=== PATIENT | female | born 1955 | race Hispanic/Latino ===

== ENCOUNTER 2020-08-03 13:21 | Emergency (ER) | payer MEDICARE ==
--- NOTE | 2020-08-03 19:19 | RAD REPORT ---
EXAM DESCRIPTION: RAD - Chest Single View - 08/03/2020 7:04 pm CLINICAL HISTORY: SOB, COVID positive COMPARISON: Single-view chest April 2009 TECHNIQUE: AP portable chest image was obtained 08/03/2020 7:04 pm . FINDINGS: Lung volumes are low. Airspace opacification is present in the mid and lower right lung fi eld with significant lower left lung field opacification. There is respiratory motion degradation. Th is is most likely mild to moderate severity COVID-19 pneumonia. Heart and vasculature are normal. No measurable pleural effusion and no pneumothorax. No acute bony abnormality seen. No acute aortic findings suspected. IMPRESSION: Mild to moderate bilateral COVID-19 pneumonia pattern
[2020-08-03 19:50] LABS: Protime INR 1.01
[2020-08-03 20:05] LABS: Absolute Lymphocytes (CBC) 1.4 K/uL (0.7-4.9); Basophils % 0.2 % (0-1.3); Hematocrit 40.4 % (36.0-45.0); Lymphocytes % 16.9 % (15.3-44.8); MPV 8.7 fL (7.6-11.3); RBC Red Blood Cell Count 4.53 M/uL (3.86-4.86)
[2020-08-03 20:12] LABS: ALT/SGPT 58 U/L (12-78); AST/SGOT 44 U/L (15-37); Albumin 3.5 g/dL (3.4-5.0); Alkaline Phosphatase 150 U/L (45-117); BUN Blood Urea Nitrogen 17 mg/dL (7-18); Bicarbonate 26 mmol/L (21-32); Bilirubin Direct 0.2 mg/dL (0-0.2); Bilirubin Total 0.6 mg/dL (0.2-1.0); Ferritin 809.3 ng/mL (8-388); Glucose Level 92 mg/dL (74-106); Lipase 143 U/L (73-393); Potassium 3.8 mmol/L (3.5-5.1); Protein, Total 7.9 g/dL (6.4-8.2); Sodium Level 139 mmol/L (136-145); Troponin (Emerg Dept Use Only) < 0.02 ng/mL (0.0-0.045)
[2020-08-03] MEDS ORDERED: ALBUTEROL 2.5 MG/3 ML NEB SOL ONE (20:22)
[2020-08-03] MEDS ORDERED: IPRATROPIUM BROM 0.5MG/2.5ML ONE (20:22)
[2020-08-03] MEDS ORDERED: METHYLPREDNISOLONE 125 MG INJ ONE (20:22)
--- NOTE | 2020-08-03 21:12 | EDPHYS ---
Physician Documentation [facility] Name: Leti Doan Age: 65 yrs Sex: Female : 1955 Arrival Date: 08/03/2020 Time: 13:25 Bed 20 Private MD: ED Physician Andi Snell HPI: 08/03 18:47 This 65 yrs old Female presents to ER via Ambulatory with complaints of pm1 COVID+, Shortness of breath. 18:47 The patient has shortness of breath at rest. Onset: The symptoms/episode began/occurred pm1 1 week(s) ago. The patient's shortness of breath is aggravated by nothing, is alleviated by nothing. Associated signs and symptoms: Pertinent positives: non-productive cough, sore throat, nausea, fatigue, headache , Pertinent negatives: chest pain, fever, vomiting, diarrhea. Severity of symptoms: in the emergency department the symptoms are worse. Diagnosed with COVID 1 week ago with her PCP in [place]. Historical: - Allergies: 13:43 No Known Allergies; sv - Immunization history:: Adult Immunizations up to date. - Social history:: Smoking status: Patient denies any tobacco usage or history of. ROS: 18:47 Cardiovascular: Negative for chest pain, palpitations, and edema. pm1 18:47 MS/Extremity: Negative for injury and deformity, Skin: Negative for injury, rash, and discoloration. 18:47 Constitutional: Positive for body aches, fatigue, Negative for fever, poor PO intake. 18:47 ENT: Positive for sore throat, Negative for rhinorrhea. 18:47 Neck: Positive for pain, Negative for injury or acute deformity, stiffness. 18:47 Respiratory: Positive for cough, shortness of breath. 18:47 Abdomen/GI: Positive for nausea, Negative for abdominal pain, vomiting, diarrhea. 18:47 Back: Positive for of the left mid back and right mid back, pain. 18:47 Neuro: Positive for headache. Exam: 18:47 Head/Face: Normocephalic, atraumatic. pm1 18:47 Constitutional: This is a well developed, well nourished patient who is awake, alert, and in no acute distress. Chest/axilla: Normal chest wall appearance and motion. Nontender with no deformity. No lesions are appreciated. 18:47 Skin: Warm, dry with normal turgor. Normal color with no rashes, no lesions, and no evidence of cellulitis. MS/ Extremity: Pulses equal, no cyanosis. Neurovascular intact. Full, normal range of motion. 18:47 Cardiovascular: Exam negative for acute changes, Rate: normal, Rhythm: regular, Pulses: no pulse deficits are appreciated, Heart sounds: normal. 18:47 Respiratory: the patient does not display signs of respiratory distress, Respirations: tachypnea, 30 Breath sounds: bronchial sounds, that are mild, are heard diffusely. 18:47 Abdomen/GI: Inspection: obese Palpation: abdomen is soft and non-tender, in all quadrants. 18:47 Neuro: Exam negative for acute changes, Orientation: is normal, Mentation: is normal, Motor: is normal, moves all fours. Vital Signs: 13:43 BP 107 / 61; Pulse 96; Resp 32; Temp 97.6(O); Pulse Ox 98% on R/A; Weight 76.2 kg; sv Height 5 ft. 0 in. (152.40 cm); Pain 4/10; 19:47 BP 106 / 66 LA (man/lg); Pulse 79; Resp 28 S; Pulse Ox 95% on R/A; jp3 20:00 BP 114 / 64; Pulse 77; Resp 18; Pulse Ox 95% ; sf 21:00 BP 106 / 67; Pulse 92; Resp 18; Pulse Ox 94% ; sf 21:30 BP 106 / 67; Pulse 97; Resp 18; Pulse Ox 97% ; sf 13:43 Body Mass Index 32.81 (76.20 kg, 152.40 cm) sv MDM: 18:36 Patient medically screened. pm1 18:52 Data reviewed: vital signs. pm1 21:07 Data interpreted: Pulse oximetry: on room air is 95 %. Interpretation: normal. pm1 21:07 Counseling: I had a detailed discussion with the patient and/or guardian regarding: the pm1 historical points, exam findings, and any diagnostic results supporting the discharge/admit diagnosis, lab results, radiology results, the need for outpatient follow up, to return to the emergency department if symptoms worsen or persist or if there are any questions or concerns that arise at home, Discussed patient presentation and w/u with Dr. Macias. Patient can be discharged home with return precautions because she does not meet admit criteria. Discussed with patient and her daughter and she wants to go home. Discussed return precautions . 08/03 18:38 Order name: Blood Culture Adult (2) pm1 08/03 18:38 Order name: BMP pm1 08/03 18:38 Order name: C-Reactive Protein pm1 08/03 18:38 Order name: CBC with Diff pm1 08/03 18:38 Order name: D-Dimer pm1 08/03 18:38 Order name: Ferritin pm1 08/03 18:38 Order name: Flu pm1 08/03 18:38 Order name: Lactate pm1 08/03 18:38 Order name: LFT's pm1 08/03 18:38 Order name: Lipase pm1 08/03 18:38 Order name: Procalcitonin pm1 08/03 18:38 Order name: PT-INR; Complete Time: 20:01 pm1 08/03 18:38 Order name: Ptt, Activated; Complete Time: 20:01 pm1 08/03 18:38 Order name: Strep; Complete Time: 19:59 pm1 08/03 18:38 Order name: Troponin (emerg Dept Use Only); Complete Time: 20:36 pm1 08/03 18:38 Order name: CXR XRAY; Complete Time: 19:23 pm1 08/03 18:39 Order name: Blood Culture EDMS 08/03 18:39 Order name: Basic Metabolic Panel; Complete Time: 20:36 EDMS 08/03 18:39 Order name: C-Reactive Protein; Complete Time: 20:36 EDMS 08/03 18:39 Order name: CBC with Automated Diff; Complete Time: 20:08 EDMS 08/03 18:39 Order name: D-Dimer; Complete Time: 20:01 EDMS 08/03 18:39 Order name: Ferritin; Complete Time: 20:36 EDMS 08/03 18:39 Order name: Influenza Screen (A ; Complete Time: 20:01 EDMS 08/03 18:39 Order name: Lactate; Complete Time: 20:01 EDMS 08/03 18:39 Order name: Liver (Hepatic) Function; Complete Time: 20:36 EDMS 08/03 18:39 Order name: Lipase; Complete Time: 20:36 EDMS 08/03 18:39 Order name: Procalcitonin; Complete Time: 20:44 EDMS 08/03 19:59 Order name: Throat Culture EDID 08/03 18:38 Order name: EKG; Complete Time: 18:40 pm1 08/03 18:38 Order name: Cardiac monitoring; Complete Time: 19:33 pm1 08/03 18:38 Order name: Droplet/Contact Precautions; Complete Time: 19:33 pm1 08/03 18:38 Order name: EKG - Nurse/Tech; Complete Time: 19:50 pm1 08/03 18:38 Order name: IV Start; Complete Time: 19:33 pm1 08/03 18:38 Order name: Labs collected and sent; Complete Time: 19:33 pm1 08/03 18:38 Order name: O2 Per Protocol; Complete Time: 19:33 pm1 08/03 18:38 Order name: O2 Sat Monitoring; Complete Time: 19:33 pm1 Administered Medications: 20:05 Drug: SOLU-Medrol 125 mg Route: IVP; Site: right antecubital; sf 20:59 Follow up: Response: No adverse reaction sf 20:11 Drug: Albuterol - atroVENT (3:1) (2.5 mg - 0.5 mg) 3 ml Route: Nebulizer; sf 20:59 Follow up: Response: No adverse reaction sf Disposition: 08/03/20 21:11 Discharged to Home. Impression: Pneumonia due to SARS-associated coronavirus. - Condition is Stable. - Discharge Instructions: COVID-19. - Prescriptions for ivermectin 3 mg Oral tablet - take 6 tablet by ORAL route as directed 6 tablets on day 1 and 6 tablets on day 3; 12 tablet. Prednisone 20 mg Oral Tablet - take 3 tablet by ORAL route once daily for 5 days; 15 tablet. Albuterol Sulfate 90 mcg/actuation - inhale 1-2 puff by INHALATION route every 4-6 hours; 1 Inhaler. Guaifenesin AC 10- 100 mg/5 mL Oral Liquid - take 10 milliliter by ORAL route every 4 hours As needed; 240 milliliter. - Medication Reconciliation Form, Thank You Letter, Antibiotic Education, Prescription Opioid Use form. - Follow up: Emergency Department; When: As needed; Reason: Worsening of condition. Follow up: Private Physician; When: 2 - 3 days; Reason: Recheck today's complaints, Continuance of care, Re-evaluation by your physician. - Problem is new. - Symptoms have improved. Addendum: 08/11/2020 18:55 Co-signature as Attending Physician, Andi Snell MD. r n Signatures: Dispatcher [employer] Zari Valdes, RN RN Andi Landers MD MD rn Marinas, Patrick, FLATWORK WASHER FLATWORK WASHER pm1 Zain Hobbs RN RN sf Corrections: (The following items were deleted from the chart) 08/03 21:43 21:11 08/03/2020 21:11 Discharged to Home. Impression: Pneumonia due to SARS-associated sf coronavirus. Condition is Stable. Forms are Medication Reconciliation Form, Thank You Letter, Antibiotic Education, Prescription Opioid Use. Follow up: Emergency Department; When: As needed; Reason: Worsening of condition. Follow up: Private Physician; When: 2 - 3 days; Reason: Recheck today's complaints, Continuance of care, Re-evaluation by your physician. Problem is new. Symptoms have improved. pm1
--- NOTE | 2020-08-03 21:12 | ER ---
Nurse's Notes [facility] Name: Leti Doan Age: 65 yrs Sex: Female : 1955 Arrival Date: 08/03/2020 Time: 13:25 Bed 20 Private MD: Diagnosis: Pneumonia due to SARS-associated coronavirus Presentation: 08/03 13:41 Chief complaint: Patient states: BP is up and down, sore throat, nausea, neck pain, sv fatigue, headache, nausea started last Monday. COVID+ 2. Coronavirus screen: Client denies travel out of the [place] in the last 14 days. Client presents with at least one sign or symptom that may indicate coronavirus-19. Standard/surgical mask placed on the client. Provider contacted for isolation considerations. Client reports previous positive COVID test result. Date of collection: July 27, 2020. Ebola Screen: No symptoms or risks identified at this time. Risk Assessment: Do you want to hurt yourself or someone else? Patient reports no desire to harm self or others. Onset of symptoms was July 27, 2020. 13:41 Method Of Arrival: Ambulatory sv 13:41 Acuity: DAQUAN 2 sv 13:43 Initial Sepsis Screen: Does the patient meet any 2 criteria? RR > 20 per min. HR > 90 sv bpm. Yes Does the patient have a suspected source of infection? Yes: Other: COVID. Triage Assessment: 13:41 General: Appears in no apparent distress. uncomfortable, Behavior is calm, cooperative, sv appropriate for age. Pain: Complains of pain in all over. Neuro: Level of Consciousness is awake, alert, obeys commands, Oriented to person, place, time, situation, Moves all extremities. Full function Gait is steady, Speech is normal. Respiratory: Respiratory effort is even, unlabored, Respiratory pattern is symmetrical, tachypnea. Historical: - Allergies: 13:43 No Known Allergies; sv - Immunization history:: Adult Immunizations up to date. - Social history:: Smoking status: Patient denies any tobacco usage or history of. Screenin:21 Abuse screen: Denies threats or abuse. Denies injuries from another. Nutritional sf screening: No deficits noted. Tuberculosis screening: No symptoms or risk factors identified. Fall Risk None identified. No fall in past 12 months (0 pts). No secondary diagnosis (0 pts). IV access (20 points). Ambulatory Aid- None/Bed Rest/Nurse Assist (0 pts). Gait- Normal/Bed Rest/Wheelchair (0 pts) Mental Status- Oriented to own ability (0 pts). Total Childers Fall Scale indicates No Risk (0-24 pts). Assessment: 20:00 General: Appears in no apparent distress. comfortable, Behavior is calm, cooperative, sf appropriate for age. Pain: Denies pain. Neuro: No deficits noted. Level of Consciousness is awake, alert, Oriented to person, place, time, situation, Appropriate for age. Cardiovascular: No deficits noted. Capillary refill < 3 seconds Patient's skin is warm and dry. Respiratory: Reports shortness of breath at rest cough that is non-productive, Airway is patent Respiratory effort is even, Respiratory pattern is regular, symmetrical. GI: No deficits noted. Abdomen is non-distended. 21:22 Reassessment: Patient appears in no apparent distress at this time. Patient and/or sf family updated on plan of care and expected duration. Pain level reassessed. Patient is alert, oriented x 3, equal unlabored respirations, skin warm/dry/pink. Patient states feeling better. Vital Signs: 13:43 BP 107 / 61; Pulse 96; Resp 32; Temp 97.6(O); Pulse Ox 98% on R/A; Weight 76.2 kg; sv Height 5 ft. 0 in. (152.40 cm); Pain 4/10; 19:47 BP 106 / 66 LA (man/lg); Pulse 79; Resp 28 S; Pulse Ox 95% on R/A; jp3 20:00 BP 114 / 64; Pulse 77; Resp 18; Pulse Ox 95% ; sf 21:00 BP 106 / 67; Pulse 92; Resp 18; Pulse Ox 94% ; sf 21:30 BP 106 / 67; Pulse 97; Resp 18; Pulse Ox 97% ; sf 13:43 Body Mass Index 32.81 (76.20 kg, 152.40 cm) sv ED Course: 13:25 Patient arrived in ED. mr 13:43 Triage completed. sv 13:43 Arm band placed on. sv 18:28 Arpan Mena NP is PHCP. pm1 18:28 Andi Snell MD is Attending Physician. pm1 19:00 X-ray(s) taken. jp3 19:04 CXR XRAY In Process Unspecified. EDMS 19:15 Inserted saline lock: 20 gauge in right antecubital area, using aseptic technique. jp3 Blood collected. Patient maintains SpO2 saturation greater than 95% on room air. 19:15 First set of blood cultures drawn by me, Flu and/or RSV swab sent to lab. Strep swab jp3 sent to lab. 19:20 Initial lab(s) drawn, by me, sent to lab. jp3 19:25 Second set of blood cultures drawn by me. jp3 19:32 Placed in gown. Bed in low position. Call light in reach. Side rails up X 1. Verbal jp3 reassurance given. court monitor on. Pulse ox on. NIBP on. 19:49 EKG done, by ED staff, reviewed by Arpan Mena NP. jp3 20:02 Zain Hobbs, RN is Primary Nurse. sf 20:11 Initial Neb Treatment Given as ordered Patient was instructed and evaluated on sf procedure. 21:23 No provider procedures requiring assistance completed. sf 21:42 IV discontinued, intact, bleeding controlled, No redness/swelling at site. Pressure sf dressing applied. Administered Medications: 20:05 Drug: SOLU-Medrol 125 mg Route: IVP; Site: right antecubital; sf 20:59 Follow up: Response: No adverse reaction sf 20:11 Drug: Albuterol - atroVENT (3:1) (2.5 mg - 0.5 mg) 3 ml Route: Nebulizer; sf 20:59 Follow up: Response: No adverse reaction sf Outcome: 21:11 Discharge ordered by MD. pm1 21:41 Discharged to home ambulatory. sf 21:41 Condition: stable 21:41 Condition: improved 21:41 Discharge instructions given to patient, family, Instructed on discharge instructions, follow up and referral plans. medication usage, Demonstrated understanding of instructions, follow-up care, medications, Prescriptions given X 4. 21:43 Patient left the ED. sf Signatures: Dispatcher [employer] Zari Valdes RN RN sv RiveraCharo Patrick, NP INSTRUMENTATION AND CONTROLS DESIGNER pm1 Edmar Crow jp3 Zain Hobbs RN RN sf Corrections: (The following items were deleted from the chart) 13:46 13:41 Chief complaint: Patient states: BP is up and down, sore throat, neck pain, sv fatigue, headache, nausea started last Monday. COVID+ 07/27/20 13:41 Acuity: DAQUAN 3 sv 21:22 Response: No adverse reaction sf sf
[2020-08-03 23:00] VITALS: TEMP 97.6
[2020-08-03 23:09] VITALS: BP 106/67
[2020-08-03 23:10] VITALS: O2SAT 97
--- NOTE | 2020-08-04 18:42 | EKG ---
Test Date: 2020-08-03 Test Time: 19:41:08 Box Toe Flanger Stitchdowns: RAJESH MEASUREMENT RESULTS: Intervals: Rate: 79 MI: 136 QRSD: 68 QT: 386 QTc: 442 Valentine: P: 46 MI: 136 QRS: -49 T: 33 INTERPRETIVE STATEMENTS: Normal sinus rhythm Left axis deviation Anterior infarct, age undetermined Abnormal ECG No previous ECG available for comparison Electronically Signed On 08-04-20 18:40:20 [employer] DOOR FRAME ASSEMBLER by Chidi Cabrera
== END 2020-08-03 21:43 | disposition home or self-care (01) ==
LOC: ER 13:21
DX: U07.1 COVID-19 (principal); J12.82 Pneumonia due to coronavirus disease 2019
CPT/HCPCS: 93005; 87040 ×2; 87070; 85025; 80048; 36415; 85610; 85379; 80076; 87081; 83605; 85730; 84484; 82728; 83690; 84145; 86140; 87804 ×2; 71045; 96374; 99285; J2930